=== PATIENT | female | born 1990 | race Caucasian/White ===

== ENCOUNTER 2016-09-10 20:50 | Emergency (ER) | payer OTHER ==
[~2016-09-10] VITALS: Ht 170.2 cm; Wt 66.8 kg
[~2016-09-10 20:50] MED LIST: NAPROSYN500 MG PO; PEN-VEE K,VEET500 MG PO; TRAMADOL HCL50 MG PO; ULTRAM50 MG PO
[2016-09-10] MEDS ORDERED: MOTRIN800 MG PO (22:02)
[2016-09-10] MEDS ORDERED: PEN-VEE K,VEET500 MG PO (22:02)
[2016-09-10 22:08] VITALS: BP 143/95
== END 2016-09-10 22:09 | disposition home or self-care (01) ==
LOC: EME 20:50 → EXP 20:50 → EME 22:09
DX: K02.9 Dental caries, unspecified (principal); Z72.0 Tobacco use
CPT/HCPCS: 99281; 99284

== ENCOUNTER 2017-05-28 08:51 | Day surgery (SDC) | payer OTHER ==
[~2017-05-28] VITALS: Ht 170.2 cm; Wt 80.7 kg
[~2017-05-28 08:51] MED LIST changes: +MOTRIN800 MG PO
[2017-05-28 09:10] VITALS: BP 130/80
[2017-05-28 12:32] VITALS: BP 121/64
[2017-05-28 13:17] VITALS: BP 114/62
== END 2017-05-28 13:23 | disposition home or self-care (01) ==
LOC: SDC 08:51
PROC: 0JB10ZZ Excision of Face Subcutaneous Tissue and Fascia, Open Approach (ICD-10-PCS; principal; 2017-05-28)
DX: L72.0 Epidermal cyst (principal); B18.2 Chronic viral hepatitis C; E28.2 Polycystic ovarian syndrome; Z87.891 Personal history of nicotine dependence
CPT/HCPCS: 88304; 88305; J0690; J1100; J1885; J2250; J2405; J3010; S0020